=== PATIENT | female | born 1965 | race Hispanic/Latino ===

== ENCOUNTER 2018-05-18 00:48 | Emergency (ER) | payer SELFPAY ==
[2018-05-18] MEDS ORDERED: ACETAMINOPHEN EXTRA STRENGTH 500 MG TABLET ONE (01:03)
== END 2018-05-18 01:54 | disposition home or self-care (01) ==
LOC: EDH 00:48
DX: H61.21 Impacted cerumen, right ear (principal); Z90.49 Acquired absence of other specified parts of digestive tract

== ENCOUNTER 2018-08-28 09:05 | Emergency (ER) | payer SELFPAY ==
[2018-08-28] MEDS ORDERED: ASPIRIN 325 MG TABLET ONE (11:10)
== END 2018-08-28 10:46 | disposition home or self-care (01) ==
LOC: EDH 09:05
DX: K64.9 Unspecified hemorrhoids (principal)

== ENCOUNTER 2024-07-03 06:54 | Emergency (ER) | payer SELFPAY ==
[~2024-07-03] VITALS: Ht 157.5 cm; Wt 86.2 kg
--- NOTE | 2024-07-03 07:14 | ERN ---
General Chief Complaint: Abscess Stated Complaint: ABSCESS Time Seen by MD: 07:05 Source: patient History of Present Illness Initial Comments 59-year-old female coming in to be evaluated for intragluteal lesions. Patient states that she has been having some discomfort for five days. Patient was evaluated by PCP started on antibiotics and cortisone cream. Patient states that the pain is still there and has a gotten worse. Allergies: Coded Allergies: No Known Allergies (Unverified Allergy, Unknown, 07/03/24) Past Medical History Past Medical History: No Pertinent History Past Surgical History: Cholecystectomy ROS Dictation CONSTITUTIONAL: No chills, no fever, no weakness, no diaphoresis, no malaise. HEAD/FACE: No signs of trauma. EENT: No eye pain, no blurred vision, no tearing, no double vision, no ear pain, no ear discharge, no nose pain, no nasal congestion, no throat pain, no throat swelling, no mouth pain. RESPIRATORY: No cough, no orthopnea, no SOB, no stridor, no wheezing. CARDIOVASCULAR: No chest pain, no edema, no palpitations, no syncope. GASTROINTESTINAL/ABDOMINAL: No abdominal pain, no constipation, no diarrhea, no nausea, no vomiting. GENITOURINARY: No abnormal discharge, no dysuria, no frequent urination, no hematuria. No complaints of pain in the genitals. MUSCULOSKELETAL: No back pain, no gout, no joint pain, no joint swelling, no muscle pain, no muscle stiffness, no neck pain. INTEGUMENTARY: No change in color, no change in hair/nails, no dryness, no lesion, no lumps, rash. NEUROLOGICAL/PSYCH: No anxiety, not depressed, no emotional problem, no headache, no numbness, no pre-existing deficit, no history of seizures, no tremors, no weakness. HEMATOLOGIC/LYMPHATIC: Not anemic, no history of blood clots, no apparent bleeding, no bruising, glands not swollen. All Systems Negative, Except as Noted. Physical Exam Physical Exam Dictation VITAL SIGNS: Reviewed. GENERAL APPEARANCE: Alert, oriented x3, no acute distress, obese. HEAD AND FACE: Non-traumatic. EYES: PERRL, pink conjunctivas, eyelid no trauma, anterior chamber clear. EARS: Pinnas intact and no signs of trauma or erythema. Ear canals clear and no discharge. TMs no erythema. NOSE: No discharge, no bleeding. OROPHARYNX: Mouth normal, teeth no caries, tongue pink. Pharynx clear, no erythema. Tonsils no exudates, no abscesses noted. Mucous membrane moist. NECK: Supple, non-tender, no thyromegaly, no masses, no JVD, no bruits. BREAST: Deferred. CHEST: No tenderness, no crepitus, no paradoxical movement, no retractions. LUNGS: Clear, well-ventilated, symmetric, no rales, no wheezing, no rhonchi, no stridor, good breath sounds bilaterally. HEART: Regular rate, regular rhythm, no murmur, no gallops. VASCULAR: No peripheral edema. ABDOMEN: Soft, positive bowel sounds, nondistended, no guarding, nontender, no rebound, no masses no hepatomegaly, no splenomegaly, no Sarkar's sign, no hernias. RECTAL: Deferred. GENITAL: Deferred. NEUROLOGICAL: Normal speech, gross motor function intact, gross sensory function intact. MUSCULOSKELETAL: Neck nontender, full range of motion, back nontender, full range of motion. EXTREMITIES: Nontender, full range of motion. SKIN: Color pink, dry, no turgor, vesicular lesions into gluteal area. LYMPHATICS: Deferred. Results Laboratory and Microbiology Labs Reviewed?: Yes MDM MDM: Differential diagnosis: Shingles, rash, pilonidal cyst, Rationale: Tests considered and ordered secondary to shared decision making include: Previous outside records reviewed: Old ER visits. Risk of complication and/or morbidity or mortality of patient management: None Patient is a 59-year-old female coming in to be evaluated for intra gluteal pain. Patient states that the pain began five days ago. Patient was evaluated by PCP was started on antibiotics for concerns that the pain might be associated with a pilonidal cyst. On physical exam there is grouped vesicular lesions in the intergluteal area. It was consistent with shingles. Patient will be discharged in stable condition with a diagnosis of shingles. ED Course Orders Procedure Category Date Status Time Gabapentin 100 Mg Cap PHA 07/03/24 Logged (Neurontin 100 Mg 07:31 Current Medications Medications (Trade) Dose Ordered Sig/Daniel Route PRN Reason Start Time Stop Time Status Last Admin Dose Admin Gabapentin (NEURontin 100 mg CAP) 100 mg ONCE STAT PO 07/03/24 07:31 07/03/24 07:32 UNV Vital Signs Date Time Temp Pulse Resp B/P (MAP) Pulse Ox O2 Delivery O2 Flow Rate FiO2 07/03/24 07:17 98.4 63 20 105/75 98 Room Air* 0 21 07/03/24 06:55 99.0 67 20 141/75 97 Room Air DX & DISP Disposition: Discharge Departure Impression: Primary Impression: Shingles Condition: Stable Scripts Calamine/Zinc Oxide (Calamine Lotion) 8 %-8 % Lotion 1 APPL TP TIDP PRN for Skin Protectant for 30 Days, #120 ML 0 Refills Prov: JENNY CAM MD 07/03/24 Gabapentin (Gabapentin) 100 Mg Capsule 1 CAP PO BID PRN for PAIN LEVEL 6 TO 10 for 5 Days, #10 CAP 0 Refills Prov: JENNY CAM MD 07/03/24 Prednisone (Prednisone) 5 Mg Tablet 25 MG PO BID for 7 Days, #14 TAB Prov: JENNY CAM MD 07/03/24 Valacyclovir HCl (Valacyclovir) 1,000 Mg Tablet 1 TAB PO TID for 7 Days, #21 TAB 0 Refills Prov: JENNY CAM MD 07/03/24 Additional Instructions: FOLLOW-UP WITH PRIMARY CARE PROVIDER IN 1 TO 2 DAYS. TAKE MEDICATIONS D IRECTED HERE IN THE EMERGENCY ROOM. OKAY TO CONTINUE HOME MEDICATIONS UNLESS OTHERWISE DISCUSSED DURING YOUR VISIT IN THE EMERGENCY ROOM TODAY. RETURN TO YOUR NEAREST EMERGENCY ROOM IF SYMPTOMS WORSEN OR IF THERE IS NO IMPROVEMENT. CALL 911 IF YOU NEED IMMEDIATE ASSISTANCE. TAKE TYLENOL [id number] NEEDED AND IF NO CONTRAINDICATIONS ARE PRESENT. INCREASE ORAL HYDRATION. A WOUND CULTURE OR URINE CULTURE WAS ORDERED HERE IN THE EMERGENCY ROOM DEPARTMENT PLEASE FOLLOW-UP WITH PRIMARY CARE PROVIDER AND ADVISE THEM TO GET REPEAT PORTS FROM OUR FACILITY. IF YOU HAD ANY [place] WRAP/SPLINTS THAT WERE APPLIED HERE, PLEASE DO NOT REMOVE THEM UNTIL YOU SEE YOUR PRIMARY CARE OR SPECIALTY. Referrals: Referrals: SELF,REFERRAL (PCP) TIARA MUHAMMAD MD Time of Disposition: 07:30 JENNY CAM MD Jul 03, 2024 07:14
[2024-07-03] MEDS: GABApentin 100 MG CAPSULE PO STA (07:36)
[2024-07-03] MEDS ORDERED: CALA177S9 TP (07:37)
[2024-07-03] MEDS ORDERED: GABA-529 PO (07:37)
[2024-07-03] MEDS ORDERED: VALA100031 PO (07:37)
[2024-07-03] MEDS ORDERED: PRED5TAB PO (07:37)
[2024-07-03 07:41] VITALS: BP 123/68; PULSE 62; RESP 18; TEMP 98.4; O2SAT 97
--- NOTE | 2024-07-03 07:52 | NUR ---
PT STABLE NO DISTRESS, VITALS WNL, PT STATES PAIN IS LITTLEL LESS NOW, ABLE TO WALK AROUND, PT AND SON GIVEN THREE RX IN HAND, WILL START TODAY. PT DRIVEN HOME BY SON.
== END 2024-07-03 09:00 | disposition home or self-care (01) ==
LOC: EDH 06:54
DX: B02.9 Zoster without complications (principal); Z90.49 Acquired absence of other specified parts of digestive tract
CPT/HCPCS: 99283